=== PATIENT | female | born 1940 | race Caucasian/White ===

== ENCOUNTER → 2020-04-27 10:00 | Outpatient (BNVA) | payer MEDICARE, BC, SELFPAY | PROVIDERS: PCP Family Medicine; Referring Provider Family Medicine; Visit Provider Nurse Practitioner Adult Health | DX: I69.351 Hemiplegia and hemiparesis following cerebral infarction affecting right dominant side (principal); M62.81 Muscle weakness (generalized); I69.398 Other sequelae of cerebral infarction; M79.601 Pain in right arm; I10 Essential (primary) hypertension | CPT/HCPCS: 95886; 95908; 99203 ==